=== PATIENT | female | born 1955 | race Caucasian/White ===

== ENCOUNTER 2016-12-26 18:30 | Emergency (ER) | payer OTHER ==
[~2016-12-26] VITALS: Ht 165.1 cm; Wt 93.4 kg
[~2016-12-26 18:30] MED LIST: CALCIUM 600 MG1 EACH PO; CHROMIUM PO; GABAPENTIN PO; IBUPROFEN600 MG PO; LEVOTHYROXINE100 MCG PO; LEXAPRO20 MG PO; MULTIPLE VITAM1 EACH PO; NASAL DECONGESTA5 MG PO; OMEGA-31000 M1 PO; TRAMADOL HCL300 MG PO; VYTORIN 10/81 TABLET PO; ZANAFLEX6 MG PO; [UNRECOGNIZED DRUG - OTHER] PO; [UNRECOGNIZED DRUG - OTHER] PO
[2016-12-26] MEDS ORDERED: ATROVENT H200 INHALA IH (19:44)
[2016-12-26] MEDS ORDERED: VALTREX1000 MG PO (19:59)
[2016-12-26] MEDS ORDERED: MEDROL DOSEPAK4 MG PO (19:59)
[2016-12-26] MEDS ORDERED: PERCOCET 5/31 TABLET PO (19:59)
[2016-12-26 20:23] VITALS: BP 121/77
== END 2016-12-26 20:27 | disposition home or self-care (01) ==
LOC: EME 18:30
DX: B02.9 Zoster without complications (principal); G89.29 Other chronic pain; E11.9 Type 2 diabetes mellitus without complications; M79.7 Fibromyalgia; Z87.442 Personal history of urinary calculi
CPT/HCPCS: 99281; 99284; J7512